=== PATIENT | female | born 1995 | race Caucasian/White ===

== ENCOUNTER 2020-07-15 20:28 | Inpatient (IN) | payer MEDICAID ==
[~2020-07-15] VITALS: Ht 162.6 cm; Wt 55.7 kg
[2020-07-15] MEDS ORDERED: SODIUM CHLORIDE 0.9% 1,000 ML IV ONE (21:00)
[2020-07-15 21:38] LABS: BASOPHILS % (AUTO) 0.4 % (0.0-2.0); EOSINOPHILS % (AUTO) 0.8 % (1.0-6.0); HEMATOCRIT 38.6 % (36-46); HEMOGLOBIN 12.8 g/dL (12.0-16.0); LYMPHOCYTES # (AUTO) 1.5 K/uL (1.0-4.8); LYMPHOCYTES % (AUTO) 17.8 % (22.0-44.0); MEAN CORPUSCULAR HEMOGLOBIN 25.9 pg (26.0-34.0); MEAN CORPUSCULAR HGB CONC 33.2 G/dL (31.0-37.0); MEAN CORPUSCULAR VOLUME 78 fL (80-100); MONOCYTES # (AUTO) 0.6 K/uL (0.1-1.0); MONOCYTES % (AUTO) 7.4 % (2.0-9.0); NEUTROPHILS # (AUTO) 6.3 K/uL (1.8-7.7); NEUTROPHILS % (AUTO) 73.6 % (40.0-70.0); PLATELET COUNT (AUTO) 223 K/uL (150-450); RED BLOOD CELL COUNT(AUTO) 4.94 MIL/uL (4.00-5.20); RED CELL DISTRIBUTION WIDTH 15.5 % (11.5-14.5)
[2020-07-15 21:41] LABS: APPEARANCE,URINE CLEAR (CLEAR); BILIRUBIN,URINE NEGATIVE (NEGATIVE); GLUCOSE, URINE (UA) NEGATIVE (NEGATIVE); KETONES,URINE >=80 mg/dL (NEGATIVE); LEUKOCYTE ESTERASE ,URINE NEGATIVE (NEGATIVE); NITRATE,URINE NEGATIVE (NEGATIVE); OCCULT BLOOD,URINE NEGATIVE (NEGATIVE); PH,URINE 5.5 (5.0-8.0); PROTEIN,URINE POS 1+ (NEGATIVE); UROBILINOGEN,URINE 0.2 mg/dL (<=1.0)
[2020-07-15 21:46] LABS: ANION GAP 15 mmol/L (8-16); CALCIUM, TOTAL 9.9 mg/dL (8.8-10.5); CARBON DIOXIDE 22 mmol/L (22-29); CHLORIDE 99 mmol/L (98-107); CREATININE 0.74 mg/dL (0.60-1.30); GLOMERULAR FILTR. RATE CALC > 60 mL/min (>60); GLUCOSE,RANDOM 90 mg/dL (70-110); POTASSIUM 3.3 mmol/L (3.5-5.1); SODIUM SERUM 136 mmol/L (136-145); UREA NITROGEN, BLOOD 11 mg/dL (7-18)
[2020-07-15 21:50] LABS: INR 1.2 (0.9-1.1); PROTHROMBIN TIME 12.4 SEC (9.4-11.6)
[2020-07-15 21:58] LABS: ALANINE AMINOTRANSFERASE 17 U/L (12-78); ALBUMIN 4.5 g/dL (3.4-5.0); ALKALINE PHOSPHATASE 62 U/L (46-116); ASPARTATE AMINOTRANSFERASE 15 U/L (15-37); BILIRUBIN,TOTAL 0.6 mg/dL (0.1-1.0); HCG,QUANTITATIVE 1 mIU/mL (0-6); LIPASE 140 U/L (73-393); TOTAL PROTEIN, SERUM 8.6 g/dL (6.4-8.2)
[2020-07-15] MEDS ORDERED: ONDANSETRON HCL 4 MG/2 ML VIAL IVP ONE (22:30)
[2020-07-15] MEDS ORDERED: MORPHINE SULFATE 2 MG/ML SYRINGE IVP ONE (22:30)
[2020-07-15] MEDS ORDERED: POTASSIUM CHLORIDE 20 MEQ ER TABLET PO ONE (22:45)
[2020-07-15] MEDS ORDERED: IOVERSOL 350 MG/ML 100 ML VIAL ONE (23:11)
[2020-07-16] MEDS ORDERED: ACETAMINOPHEN 325 MG TABLET PO PRN (01:30)
[2020-07-16] MEDS ORDERED: SODIUM CHLORIDE 0.9% 1,000 ML IV ONE (01:30)
[2020-07-16] MEDS ORDERED: ONDANSETRON HCL 4 MG/2 ML VIAL IVP PRN (01:30)
[2020-07-16 02:00] LABS: COVID AG,FIA SOURCE NASOPHARYNGEAL
[2020-07-16 02:59] VITALS: BP 138/66
[2020-07-16] MEDS ORDERED: INFLUENZA VIRUS VACCINE QVS 2020-21 (6MO+)/PF 60 MCG/0.5 ML SYRINGE IM ONE (05:00)
[2020-07-16 07:30] VITALS: BP 97/64
[2020-07-16] MEDS ORDERED: DOCU-270 PO (10:27)
[2020-07-16] MEDS ORDERED: IBUP-2070 PO (10:29)
[2020-07-16] MEDS ORDERED: ACET-2247 PO (10:31)
[2020-07-16 12:27] LABS: LACTATE DEHYDROGENASE 171 U/L (81-234)
[2020-07-16 13:43] LABS: ANION GAP 11 mmol/L (8-16); CALCIUM, TOTAL 9.2 mg/dL (8.8-10.5); CARBON DIOXIDE 23 mmol/L (22-29); CHLORIDE 104 mmol/L (98-107); CREATININE 0.74 mg/dL (0.60-1.30); GLOMERULAR FILTR. RATE CALC > 60 mL/min (>60); GLUCOSE,RANDOM 84 mg/dL (70-110); POTASSIUM 3.8 mmol/L (3.5-5.1); SODIUM SERUM 138 mmol/L (136-145); UREA NITROGEN, BLOOD 6 mg/dL (7-18)
== END 2020-07-16 14:10 | disposition home or self-care (01) | DRG 532 ==
LOC: EMS 20:32 → 6N 07-16 01:21
PROVIDERS: ADMIT Obstetrics & Gynecology; ATTEND Obstetrics & Gynecology
DX: N83.202 Unspecified ovarian cyst, left side (principal); N60.09 Solitary cyst of unspecified breast; F12.90 Cannabis use, unspecified, uncomplicated; Z83.3 Family history of diabetes mellitus; Z82.49 Family history of ischemic heart disease and other diseases of the circulatory system; Z85.830 Personal history of malignant neoplasm of bone; Z20.822 Contact with and (suspected) exposure to COVID-19
CPT/HCPCS: 74177; 76856; 80048; 80053; 81003; 83615; 83690; 84702; 85025; 85610; 85730; 86301; 86304; 90686; 99285; G0378; J2270; J2405

== ENCOUNTER → 2020-09-14 | Day surgery (SDC) | payer MEDICAID ==
[2020-09-12 11:46] LABS: COVID AG,FIA SOURCE NASOPHARYNGEAL
[2020-09-12 11:50] LABS: BASOPHILS % (AUTO) 1.2 % (0.0-2.0); EOSINOPHILS % (AUTO) 1.4 % (1.0-6.0); HEMATOCRIT 40.9 % (36-46); HEMOGLOBIN 13.5 g/dL (12.0-16.0); LYMPHOCYTES # (AUTO) 1.8 K/uL (1.0-4.8); LYMPHOCYTES % (AUTO) 29.2 % (22.0-44.0); MEAN CORPUSCULAR HEMOGLOBIN 26.5 pg (26.0-34.0); MEAN CORPUSCULAR HGB CONC 33.1 G/dL (31.0-37.0); MEAN CORPUSCULAR VOLUME 80 fL (80-100); MONOCYTES # (AUTO) 0.4 K/uL (0.1-1.0); MONOCYTES % (AUTO) 6.3 % (2.0-9.0); NEUTROPHILS # (AUTO) 3.8 K/uL (1.8-7.7); NEUTROPHILS % (AUTO) 61.9 % (40.0-70.0); PLATELET COUNT (AUTO) 179 K/uL (150-450); RED BLOOD CELL COUNT(AUTO) 5.11 MIL/uL (4.00-5.20); RED CELL DISTRIBUTION WIDTH 16.9 % (11.5-14.5)
[2020-09-12 11:57] LABS: ANION GAP 14 mmol/L (8-16); CALCIUM, TOTAL 9.7 mg/dL (8.8-10.5); CARBON DIOXIDE 28 mmol/L (22-29); CHLORIDE 101 mmol/L (98-107); CREATININE 0.78 mg/dL (0.60-1.30); GLOMERULAR FILTR. RATE CALC > 60 mL/min (>60); GLUCOSE,RANDOM 100 mg/dL (70-110); POTASSIUM 4.1 mmol/L (3.5-5.1); SODIUM SERUM 143 mmol/L (136-145); UREA NITROGEN, BLOOD 11 mg/dL (7-18)
[2020-09-12 12:01] LABS: INR 1.2 (0.9-1.1); PROTHROMBIN TIME 12.5 SEC (9.4-11.6)
[2020-09-12 12:10] LABS: HCG,QUANTITATIVE < 1 mIU/mL (0-6)
[~2020-09-14] VITALS: Ht 165.1 cm; Wt 58.2 kg
[~2020-09-14] MED LIST: ACET-2247 PO; ACETAMINOPHEN 1000 MG/ISO-OSM 100 ML IV ONE; BUPIVACAINE HCL/PF 0.25% 30 ML VIAL ONE; DEXAMETHASONE SOD PHOS 4 MG/ML VIAL IVP ONE; DOCU-275 PO; ETHYL ALCOHOL 62% ANTISEPTIC NASAL INHALANT 0.6 ML AMPUL NASAL ONE; FentaNYL CITRATE PF 100 MCG/2 ML VIAL IVP ONE; FentaNYL CITRATE PF 100 MCG/2 ML VIAL IVP PRN; HYDROmorphone 2 MG/ML VIAL IVP PRN; HYDROmorphone 2 MG/ML VIAL ONE; IBUP-2070 PO; LIDOCAINE/PF 2% 5 ML VIAL IM ONE; MEPERIDINE-PF 25 MG/ML VIAL IVP PRN; MEPERIDINE-PF 25 MG/ML VIAL ONE; MIDAZOLAM HCL 2 MG/2 ML VIAL IVP ONE; ONDANSETRON HCL 4 MG/2 ML VIAL IVP ONE; OXYGEN THERAPY IH SCH; PROPOFOL 1% 20 ML VIAL IVP ONE; RINGERS SOLUTION,LACTATED 1,000 ML IV ONE; SODIUM CHLORIDE 0.9% 0 ML ONE; SODIUM CHLORIDE 0.9% 1,000 ML ONE; SUGAMMADEX SODIUM 200 MG/2 ML VIAL IVP ONE
== END | disposition home or self-care (01) ==
LOC: SURGERY 05:14
PROVIDERS: ATTEND Obstetrics & Gynecology
DX: N83.202 Unspecified ovarian cyst, left side (principal); N83.201 Unspecified ovarian cyst, right side; F12.90 Cannabis use, unspecified, uncomplicated; Z98.890 Other specified postprocedural states; Z79.899 Other long term (current) drug therapy
CPT/HCPCS: 36415 ×2; 58662; 49322; 80048; 84702; 85025; 85610; 85730; 86850; 86900; 86901; 87426; 88305; A9575; C9803; J0131; J0690; J1100; J1170; J2175; J2250; J2405; J2704; J3010; J3490 ×2; J7030; J7120; 88108; 88341; 88342

== ENCOUNTER 2021-01-12 13:40 | Emergency (ER) | payer BC, MEDICAID, OTHER ==
[~2021-01-12] VITALS: Ht 162.6 cm; Wt 122.0 kg
[~2021-01-12 13:40] MED LIST changes: -ACETAMINOPHEN 1000 MG/ISO-OSM 100 ML IV ONE; -BUPIVACAINE HCL/PF 0.25% 30 ML VIAL ONE; -DEXAMETHASONE SOD PHOS 4 MG/ML VIAL IVP ONE; +DOCU-270 PO; -DOCU-275 PO; -ETHYL ALCOHOL 62% ANTISEPTIC NASAL INHALANT 0.6 ML AMPUL NASAL ONE; -FentaNYL CITRATE PF 100 MCG/2 ML VIAL IVP ONE; -FentaNYL CITRATE PF 100 MCG/2 ML VIAL IVP PRN; -HYDROmorphone 2 MG/ML VIAL IVP PRN; -HYDROmorphone 2 MG/ML VIAL ONE; -LIDOCAINE/PF 2% 5 ML VIAL IM ONE; -MEPERIDINE-PF 25 MG/ML VIAL IVP PRN; -MEPERIDINE-PF 25 MG/ML VIAL ONE; -MIDAZOLAM HCL 2 MG/2 ML VIAL IVP ONE; -ONDANSETRON HCL 4 MG/2 ML VIAL IVP ONE; -OXYGEN THERAPY IH SCH; -PROPOFOL 1% 20 ML VIAL IVP ONE; -RINGERS SOLUTION,LACTATED 1,000 ML IV ONE; -SODIUM CHLORIDE 0.9% 0 ML ONE; -SODIUM CHLORIDE 0.9% 1,000 ML ONE; -SUGAMMADEX SODIUM 200 MG/2 ML VIAL IVP ONE
[2021-01-12 13:42] VITALS: BP 106/66
== END 2021-01-12 15:33 | disposition home or self-care (01) ==
LOC: EMS 13:42
DX: R07.89 Other chest pain (principal); K21.9 Gastro-esophageal reflux disease without esophagitis; Z79.899 Other long term (current) drug therapy
CPT/HCPCS: 99282; Z7502